=== PATIENT | female | born 1990 | race Caucasian/White ===

== ENCOUNTER → 2019-01-31 | Outpatient (CLI) | payer OTHER ==
[~2019-01-31] MED LIST: CRUTCH4 USE; HYDACE5 PO; IBUP800 PO; Percocet 5-3251 EACH PO; [UNRECOGNIZED DRUG - OTHER] PO; [UNRECOGNIZED DRUG - OTHER] TOP
== END | disposition home or self-care (01) ==
LOC: LAB 10:30 → LAB SHORT 10:30
DX: Z34.80 Encounter for supervision of other normal pregnancy, unspecified trimester (principal)
CPT/HCPCS: 87081; 87653

== ENCOUNTER 2019-02-24 06:37 | Inpatient (IN) | payer OTHER ==
[~2019-02-24] VITALS: Ht 162.6 cm; Wt 65.0 kg
[~2019-02-24 06:37] MED LIST changes: -[UNRECOGNIZED DRUG - OTHER] PO; -[UNRECOGNIZED DRUG - OTHER] TOP
[2019-02-24 07:58] LABS: BASOPHILS ABSOLUTE AUTO 0.03 K/mm3 (0.00-0.23); BASOPHILS PERCENT AUTO 0 % (0-2); EOSINOPHILS ABSOLUTE AUTO 0.06 K/mm3 (0.00-0.68); EOSINOPHILS PERCENT AUTO 1 % (0-6); Hematocrit 39.9 % (33.0-51.0); Hemoglobin 13.5 g/dL (11.5-16.0); IMMATURE GRAN ABSOLUTE AUTO 0.02 K/mm3 (0.00-0.10); IMMATURE GRAN PERCENT AUTO 0 % (0-1); LYMPHOCYTES ABSOLUTE AUTO 1.55 K/mm3 (0.84-5.20); LYMPHOCYTES PERCENT AUTO 14 % (21-46); MONOCYTES ABSOLUTE AUTO 0.67 K/mm3 (0.16-1.47); MONOCYTES PERCENT AUTO 6 % (4-13); Mean Corpuscular HGB 31.8 pg (26.0-34.0); Mean Corpuscular HGB Conc 33.8 g/dL (31.5-36.5); Mean Corpuscular Volume 94 fL (80-100); Mean Platelet Volume 10.3 fL (9.1-12.4); NEUTROPHILS ABSOLUTE AUTO 8.58 K/mm3 (1.96-9.15); NEUTROPHILS PERCENT AUTO 79 % (41-73); Platelet Count 299 K/mm3 (150-400); RDW Coefficient Variation 13.2 % (11.7-14.2); Red Blood Cell Count 4.25 M/mm3 (3.80-5.20); White Blood Cell Count 10.91 K/mm3 (4.00-11.30)
--- NOTE | 2019-02-24 20:44 | NUR ---
VESTA DAVENPORT IN ROOM TO ASSESS REPAIR ON PERINEUM. GAUZE REMOVED AND ICE PACK DIAPER APPLIED. VESTA STATES ALL LOOKS WNL, NO CONCERNING HEMATOMA PRESENT. JUAN, RN
[2019-02-25 05:09] LABS: BASOPHILS ABSOLUTE AUTO 0.02 K/mm3 (0.00-0.23); BASOPHILS PERCENT AUTO 0 % (0-2); EOSINOPHILS ABSOLUTE AUTO 0.08 K/mm3 (0.00-0.68); EOSINOPHILS PERCENT AUTO 1 % (0-6); Hematocrit 30.5 % (33.0-51.0); Hemoglobin 10.1 g/dL (11.5-16.0); IMMATURE GRAN ABSOLUTE AUTO 0.04 K/mm3 (0.00-0.10); IMMATURE GRAN PERCENT AUTO 0 % (0-1); LYMPHOCYTES ABSOLUTE AUTO 1.77 K/mm3 (0.84-5.20); LYMPHOCYTES PERCENT AUTO 14 % (21-46); MONOCYTES PERCENT AUTO 8 % (4-13); Mean Corpuscular HGB 31.3 pg (26.0-34.0); Mean Corpuscular HGB Conc 33.1 g/dL (31.5-36.5); Mean Corpuscular Volume 94 fL (80-100); Mean Platelet Volume 10.3 fL (9.1-12.4); NEUTROPHILS ABSOLUTE AUTO 9.88 K/mm3 (1.96-9.15); NEUTROPHILS PERCENT AUTO 77 % (41-73); Platelet Count 229 K/mm3 (150-400); RDW Coefficient Variation 13.1 % (11.7-14.2); RDW Standard Deviation 45.5 fL (35.1-46.3); Red Blood Cell Count 3.23 M/mm3 (3.80-5.20); White Blood Cell Count 12.79 K/mm3 (4.00-11.30)
--- NOTE | 2019-02-25 12:57 | NUR ---
CONSULT. PLANS HOME LATER TODAY, BABY LESS THAN 24 HOURS OLD AND IS STILL VERY SLEEPY AND NOT INTERESTED IN BF YET. INSTRUCT HOW TO POSITION BABY TO HELP OBTAIN A DEEPER ASYMETRIC LATCH, CHANGES TO EXPECT DURING THE FIRST WEEK WITH BABY AND WITH FEEDINGS, AND THE IMPORTANCE OF SKIN TO SKIN TIME TO HELP BABY WAKEN MORE FOR FEEDING. MOM IS EXPERIENCED AND HANDLING BABY WELL. HE IS CURRENTLY SOUND ASLEEP IN HER ARMS. QUESTIONS ANSWERED.
[2019-02-25] MEDS ORDERED: IBUP800 PO (14:03)
[2019-02-25] MEDS ORDERED: [UNRECOGNIZED DRUG - OTHER] TOP (14:06)
--- NOTE | 2019-02-25 17:49 | NUR ---
PT DISCHARGED HOME WITH NB AND SO. DISCHARGE INSTRUCTIONS REVIEWED WITH PT AND SO, BOTH VERBALIZED UNDERSTANDING AND DENY ANY FURTHER QUESTIONS OR CONCERNS. PRESCRIPTION FOR IBUPROFEN GIVEN TO PT, [facility] CALLED INTO [facility] VOIC[facility]. PT AMBULATORY TO CAR. VSS.
[2019-05-09] MEDS ORDERED: [UNRECOGNIZED DRUG - OTHER] PO (09:23)
== END 2019-02-25 16:52 | disposition home or self-care (01) | DRG 807 ==
LOC: OBS 06:37 → BC 06:38 → OBS 07:39 → BC 07:42
PROVIDERS: ADMIT Registered Nurse Community Health
PROC: 10E0XZZ Delivery of Products of Conception, External Approach (ICD-10-PCS; principal; 2019-02-24)
PROC: 0HQ9XZZ Repair Perineum Skin, External Approach (ICD-10-PCS; 2019-02-24)
PROC: 10907ZC Drainage of Amniotic Fluid, Therapeutic from Products of Conception, Via Natural or Artificial Opening (ICD-10-PCS; 2019-02-24)
PROC: 00HU33Z Insertion of Infusion Device into Spinal Canal, Percutaneous Approach (ICD-10-PCS; 2019-02-24)
PROC: 3E0R3BZ Introduction of Anesthetic Agent into Spinal Canal, Percutaneous Approach (ICD-10-PCS; 2019-02-24)
DX: O69.81X0 Labor and delivery complicated by cord around neck, without compression, not applicable or unspecified (principal); Z37.0 Single live birth; Z3A.39 39 weeks gestation of pregnancy; O70.0 First degree perineal laceration during delivery; O99.89 Other specified diseases and conditions complicating pregnancy, childbirth and the puerperium; R12 Heartburn; Z79.899 Other long term (current) drug therapy; Z87.891 Personal history of nicotine dependence
CPT/HCPCS: 36415; 51702; 85025; C9113; J1885; J2001; J2405; J2590; J2765; J3010; J7120

== ENCOUNTER 2019-05-14 09:42 | Day surgery (SDC) | payer OTHER ==
[~2019-05-14] VITALS: Ht 160 cm; Wt 54.3 kg
[~2019-05-14 09:42] MED LIST changes: +[UNRECOGNIZED DRUG - OTHER] PO; +[UNRECOGNIZED DRUG - OTHER] TOP
--- NOTE | 2019-05-14 11:11 | NUR ---
Ambulatory in Day Surgery History, Chart, Medications and Allergies reviewed before start of procedure.Patient confirms NPO status and agrees with scheduled surgery. Patient reports completing Chlorhexadine shower X2 prior to admission to hospital.Surgical site prepped with 2% Chlorhexidine cloth wipe. Lungs clear T/O to Auscultation. Patient States Post-Procedure ride home has been arranged. PT STATES SHE IS AND HAS HER PERSONAL PUMP WHICH WILL REMAIN UNDER GURNEY WITH OTHER BELONGINGS.
--- NOTE | 2019-05-14 12:16 | NUR ---
05/14/19 1216 Carmen Huff NO PREOPERATIVE ANTIBIOTICS ORDERED
--- NOTE | 2019-05-14 12:48 | NUR ---
AWAKE AND TALKING. DENIES COMPLAINTS. VSS. STERI-STRIPS WITH SCANT DRAINAGE.
--- NOTE | 2019-05-14 14:25 | NUR ---
800MG IBUPROFEN GIVEN FOR PAIN, PT STATES SHE FEELS BETTER SITTING UP AT SIDE OF BED. SMALL VAGINAL BLEEDING NOTED WITH SMALL CLOTS. PADS GIVEN TO PT FOR COMFORT. DC'D IV INTACT. VERBALIZED UNDERSTANDING OF DC INSTRUCTIONS.
== END 2019-05-14 14:40 | disposition home or self-care (01) ==
LOC: ORSCMMR 09:42 → ORD 11:00 → ORSCMMR 14:40
PROVIDERS: Obstetrics & Gynecology
PROC: 0UT74ZZ Resection of Bilateral Fallopian Tubes, Percutaneous Endoscopic Approach (ICD-10-PCS; principal; 2019-05-14 11:00)
DX: Z30.2 Encounter for sterilization (principal)
CPT/HCPCS: 88302; J1100; J1885; J2405; J2704; J2710; J3010; J7120

== ENCOUNTER → 2021-02-09 | Outpatient (CLI) | payer OTHER ==
[2021-02-10 10:30] LABS: Candida species (DNA Probe) Negative (NEGATIVE); G. vaginalis (DNA Probe) Negative (NEGATIVE); T. vaginalis (DNA Probe) Negative (NEGATIVE)
== END | disposition home or self-care (01) ==
LOC: LAB 14:11 → LAB SHORT 14:11
PROVIDERS: Family Medicine
DX: N39.0 Urinary tract infection, site not specified (principal)
CPT/HCPCS: 87480; 87510; 87660

== ENCOUNTER → 2022-11-24 | Outpatient (CLI) | payer BC ==
[2022-11-25 11:52] LABS: Candida species (DNA Probe) Negative (NEGATIVE); G. vaginalis (DNA Probe) Negative (NEGATIVE); T. vaginalis (DNA Probe) Negative (NEGATIVE)
[2022-11-25 15:09] LABS: HPV 16 Negative (Negative); HPV 18 Negative (Negative); HPV OTHER HR TYPES Negative (Negative)
== END | disposition home or self-care (01) ==
LOC: LAB 15:18 → LAB SHORT 15:18
PROVIDERS: Advanced Practice Midwife
DX: Z01.419 Encounter for gynecological examination (general) (routine) without abnormal findings (principal); N94.12 Deep dyspareunia
CPT/HCPCS: 87480; 87510; 87624; 87660; G0145

== ENCOUNTER 2023-05-05 08:33 | Emergency (ER) | payer BC ==
[~2023-05-05] VITALS: Ht 162.6 cm; Wt 55.3 kg
[2023-05-05 09:37] LABS: BASOPHILS ABSOLUTE AUTO 0.02 K/mm3 (0.00-0.23); BASOPHILS PERCENT AUTO 0 % (0-2); EOSINOPHILS ABSOLUTE AUTO 0.13 K/mm3 (0.00-0.68); EOSINOPHILS PERCENT AUTO 2 % (0-6); Hematocrit 41.3 % (33.0-51.0); Hemoglobin 13.9 g/dL (11.5-16.0); IMMATURE GRAN ABSOLUTE AUTO 0.02 K/mm3 (0.00-0.10); IMMATURE GRAN PERCENT AUTO 0 % (0-1); LYMPHOCYTES ABSOLUTE AUTO 1.58 K/mm3 (0.84-5.20); LYMPHOCYTES PERCENT AUTO 19 % (21-46); MONOCYTES ABSOLUTE AUTO 0.41 K/mm3 (0.16-1.47); MONOCYTES PERCENT AUTO 5 % (4-13); Mean Corpuscular HGB 30.9 pg (26.0-34.0); Mean Corpuscular HGB Conc 33.7 g/dL (31.5-36.5); Mean Corpuscular Volume 92 fL (80-100); Mean Platelet Volume 10.2 fL (9.1-12.4); NEUTROPHILS ABSOLUTE AUTO 5.99 K/mm3 (1.96-9.15); NEUTROPHILS PERCENT AUTO 74 % (41-73); Platelet Count 313 K/mm3 (150-400); RDW Coefficient Variation 12.9 % (11.7-14.2); RDW Standard Deviation 43.5 fL (35.1-46.3); White Blood Cell Count 8.15 K/mm3 (4.00-11.30)
[2023-05-05 09:41] LABS: Source, Urine Clean Catch
[2023-05-05 09:48] LABS: Appearance, Urine Hazy (Clear); Bilirubin, Urine Neg (Neg); Blood, Urine Neg (Neg); Color, Urine Yellow (P-Yellow); Glucose Qualitative, Urine Neg (Neg); Ketones, Urine Neg (Neg); Leukocyte Esterase, Urine Neg (Neg); Nitrite, Urine Neg (Neg); Protein, Urine Neg (Neg); Urobilinogen, Urine NORM (Normal)
[2023-05-05 09:58] LABS: Albumin, Blood 3.9 g/dL (3.4-5.0); Bilirubin, Total 0.4 mg/dL (0.1-1.0); Bun/Creatinine Ratio 14.3 (12.0-20.0); Calcium, Blood 8.6 mg/dL (8.5-10.1); Creatinine, Blood 0.84 mg/dL (0.40-1.00); Globulin, Blood 3.9 g/dL (2.2-4.0); Potassium, Blood 3.7 mmol/L (3.5-5.5); Total Protein, Blood 7.8 g/dL (6.4-8.2)
[2023-05-05 10:00] LABS: Bacteria Rare /hpf; Mucus Light (0-Heavy); Red Blood Cells, Urine 0-2 /hpf (0-2); Squamous Epithelial Cells Few /hpf (Few); White Blood Cells, Urine 0-2 /hpf (0-5)
[2023-05-05 11:45] VITALS: BP 122/77
[2023-05-05] MEDS ORDERED: OXYC5 PO (13:17)
== END 2023-05-05 12:37 | disposition home or self-care (01) ==
LOC: ER 08:33
PROVIDERS: Emergency Medicine
DX: K52.9 Noninfective gastroenteritis and colitis, unspecified (principal)
CPT/HCPCS: 74177; 76705; 80053; 81001; 83690; 85025; 96361; 96374-59; 96375; 96376; 99284-25; J1170; J2405; J7030; Q9967